=== PATIENT | female | born 1935 | race Caucasian/White ===

== ENCOUNTER 2017-02-27 10:28 | Outpatient (CLI) | payer MEDICARE ==
[2017-02-27 11:13] LABS: #Eosinphils 0.2 thou/uL (0.0-0.7); #Lymphocytes 1.9 thou/uL (1.20-3.40); #Monocytes 0.4 thou/uL (0.11-0.59); #Neutrophils 3.1 thou/uL (1.40-6.50); %Basophils 0.9 % (0.0-1.0); %Eosinophils 3.2 % (0.0-10.0); %Lymphocytes 33.4 % (21.0-51.0); %Monocytes 7.5 % (0.0-10.0); Hematocrit 41.8 % (36.0-47.0); Mean Platelet Volume 9.2 fL (7.4-10.4); White Blood Cell (WBC) Count 5.7 thou/uL (4.8-10.8)
--- NOTE | 2017-02-27 11:25 | RAD ---
TWO VIEW CHEST: History: Pre-operative evaluation. FINDINGS: The lung esparza appear clear. No infiltrates seen. Heart and mediastinum are unremarkable. Osseous st ructures unremarkable. IMPRESSION: No acute process. POS: [facility]
[2017-02-27 11:32] LABS: Anion Gap 9 mmol/L (10-20); BUN (Urea Nitrogen) 15 mg/dL (9.8-20.1); Calc. Creatinine Clearance 0 mL/min (70-130); Calcium 9.4 mg/dL (7.8-10.44); Carbon Dioxide 26 mmol/L (23-31); Chloride 108 mmol/L (98-107); Estimated GFR-MDRD 78
--- NOTE | 2017-02-28 14:25 | EKG ---
Test Reason : Blood Pressure : / mmHG Vent. Rate : 065 BPM Atrial Rate : 065 BPM P-R Int : 172 ms QRS Dur : 082 ms QT Int : 388 ms P-R-T Axes : 037 024 033 degrees QTc Int : 403 ms Normal sinus rhythm Normal ECG Confirmed by TABATHA MARQUEZ ([id number]) on 02/28/2017 2:25:08 PM Referred By: AZRA Confirmed By:TABATHA MARQUEZ
== END 2017-02-27 10:29 | disposition home or self-care (01) ==
LOC: LABBT 10:28
PROVIDERS: ATTEND Orthopaedic Surgery Hand Surgery
DX: Z01.818 Encounter for other preprocedural examination (principal); G56.01 Carpal tunnel syndrome, right upper limb
CPT/HCPCS: 71020; 80048; 85025; 93005; 93010

== ENCOUNTER 2017-03-06 11:39 | Day surgery (SDC) | payer MEDICARE ==
[2017-03-06] MEDS ORDERED: Sodium Chloride 0.9% 0 ML ONE (13:38)
[2017-03-06] MEDS ORDERED: Bupivacaine/Epinephrine 0.25% 30 ML VIAL ONE (13:38)
[2017-03-06] MEDS ORDERED: Bacitracin Zinc Ointment 30 gm TUBE ONE ×2 (13:38→13:43)
[2017-03-06] MEDS ORDERED: Bupivacaine PF 0.5% 30 ML VIAL ONE (13:43)
[2017-03-06] MEDS ORDERED: Betamet Acet/Betamet Na Ph 30 MG/5 ML VIAL ONE (13:44)
[2017-03-06] MEDS ORDERED: Clindamycin/D5W 600 mg/50 ml Premix Bag ONE (13:48)
[2017-03-06] MEDS ORDERED: Fentanyl 100 MCG/2 ML VIAL ONE (14:14)
[2017-03-06] MEDS ORDERED: Lidocaine 1% PF 5 ML VIAL ONE (15:48)
[2017-03-06] MEDS ORDERED: Ondansetron HCl/PF 4 MG/2 ML Vial ONE (15:48)
[2017-03-06] MEDS ORDERED: Propofol 200 MG/20 ML VIAL ONE (15:48)
--- NOTE | 2017-03-06 21:50 | OP ---
DATE OF SURGERY: 03/06/2017 PREOPERATIVE DIAGNOSIS: Right carpal tunnel syndrome. POSTOPERATIVE DIAGNOSIS: Right carpal tunnel syndrome. FINDINGS: Very tight transcarpal ligament over 2 cm area where there was early flattening in the sag ittal plane without stippling or an hourglass formation of median nerve within the distal third of tr ansverse carpal ligament. No excessive laxity and synovitis was found. PROCEDURE PERFORMED: 1. Carpal tunnel release. 2. Carpal tunnel injection, steroid, Celestone 3 mL. COMPLICATIONS: None. TOURNIQUET TIME: 14 minutes. ESTIMATED BLOOD LOSS: Less than 5 mL. INJECTABLE: 3 mL drip technique of Celestone into the canal around the nerve. INDICATION: Failed conservative treatment except for some moderate but fleeting relief with injectio n. Now returns because the numbness has persisted for over 2 years and increased with portion of the last 6 months. I warned the patient and daughter prior to surgery that the duration of greater than 2 years will pro bably mean delayed return of sensation and normal feeling to the tips of the digits even though the l asting pain should decrease appreciably right away. DESCRIPTION OF PROCEDURE: After successful general LMA technique, the limb was prepped and draped. Time out was done appropriately. Limb was exsanguinated, tourniquet inflated to 250 mmHg pressure. A total of 6 mL 0.5% Marcaine given along the outline incision, which was in line with the aníbal clements r for me to allow for a distance for approximately 5 mm distal to the volar wrist flexion creas e. With examination completed, tourniquet was inflated to 250 mmHg pressure, the incision was develo ped and carried the skin and subcutaneous tissue until we reached the transverse carpal ligament. We entered the ligament just ulnar to the line that includes the ring finger and the palmaris longus. Carried this through skin and subcutaneous tissue until we then open transverse carpal ligament with a Villalba blade, visualized the underlying soft tissue structures as the flexor tendon sheath and then from midportion distally released transverse carpal ligament protecting the median nerve which had a type 1 takeoff the motor branch. We then dissected back proximally, increased with self-retaining r etractor and then elevated the skin, so we can visualize the transverse carpal ligament proximal to t he mid portion and this was released as well under direct visualization with a combination of Villalba blade and tenotomy scissors. We then placed 3 mL Celestone on the median nerve where we could see it was flat in the sagittal plane without stippling or an hourglass formation. We released the tourniq uet, obtained hemostasis and then closed the wound with interrupted 4-0 nylon mattress pattern. Bulk y dressing was applied along with a small Raimundo wrap, and the patient left the operating room without e vidence of anesthetic or operative complication.
== END 2017-03-06 16:30 | disposition home or self-care (01) ==
LOC: SDC 11:39
PROVIDERS: ATTEND Orthopaedic Surgery Hand Surgery
PROC: 01N50ZZ Release Median Nerve, Open Approach (ICD-10-PCS; principal; 2017-03-06)
PROC: 3E0T33Z Introduction of Anti-inflammatory into Peripheral Nerves and Plexi, Percutaneous Approach (ICD-10-PCS; 2017-03-06)
DX: G56.01 Carpal tunnel syndrome, right upper limb (principal); I10 Essential (primary) hypertension; G62.9 Polyneuropathy, unspecified; Z88.2 Allergy status to sulfonamides; Z88.8 Allergy status to other drugs, medicaments and biological substances; Z88.0 Allergy status to penicillin; Z98.890 Other specified postprocedural states
CPT/HCPCS: A4216; J0702; J2001; J2405; J2704; J3010; J3490; S0020

== ENCOUNTER 2017-11-25 13:07 | Outpatient (CLI) | payer MEDICARE ==
[~2017-11-25 13:07] MED LIST: Gadobenate Dimeglumine 529 MG/1 ML (20ML VIAL) ONE
--- NOTE | 2017-11-25 17:18 | RAD ---
LUMBAR SPINE 4 VIEWS: Date: 11/25/17 HISTORY: Radiculopathy. Numbness and tingling. Left leg pain. FINDINGS: There are five lumbar-type vertebral bodies. Vertebral body height is maintained. Disc space heights are preserved. No fracture. Vacuum disc phenomenon at L2-L3 and L5-S1. Moderate loss of disc space he ight at L2-L3. Severe loss of disc space height at L5-S1. There are degenerative changes in the poste rior elements. In the neutral position, 3.8 mm retrolisthesis of L2 upon L3. Upon flexion, 3.1 mm of retrolisthesis of L2 upon L3. Upon extension, 3.8 mm retrolisthesis of L2 upon L3. No additional spon dylosis is noted. IMPRESSION: Degenerative changes lumbar spine as above. POS: [facility]
--- NOTE | 2017-11-25 17:21 | RAD ---
CERVICAL SPINE SERIES 4 VIEWS: Date: 11/25/17 HISTORY: Neck pain and left arm numbness and tingling. FINDINGS: The bones appear demineralized. Vertebral bodies maintain normal height. There is some mild disc narr owing at C4-5. Osteophytic changes and degenerative facet changes are seen along the course of the sp ine. No soft tissue swelling. No abnormal motion and extension or flexion, somewhat restricted motion and flexion in lower cervical spine. IMPRESSION: Arthritic changes of the spine. POS: [facility]
--- NOTE | 2017-11-25 17:30 | MRI ---
MRI LUMBAR SPINE WITH AND WITHOUT CONTRAST: HISTORY: Small bowel radiculopathy. Low back pain x2 years. Left leg pain. Associated numbness and tingling . COMPARISON: None. TECHNIQUE: An MRI of the lumbar spine is performed with and without intravenous Gadolinium administration. Mult isequential, multiplanar imaging is performed. FINDINGS: Type 1 and 2 modic changes at the inferior endplate of T12 and the inferior endplate of L1, as well a s the L4-L5 disk space. Post contrast images do not demonstrate any obvious abnormal enhancement in the vertebral bodies. Symmetric signal intensity of the psoas muscles. The visualized solid organs have appropriate signal intensity. The conus medullaris terminates at the mid L1 level. Unremarkable gallbladder. T12-L1: No high grade central canal stenosis or high grade foraminal narrowing. L1-L2: Desiccation with moderate loss of disk space height. Generalized disk bulge. No significant central canal stenosis. Mild bilateral foraminal narrowing. L2-L3: Desiccation with moderate loss of disk space height. Generalized disk bulge. Right greater than left posterior element hypertrophy results in mild stenosis of the thecal sac. However, there i s significant narrowing of the right subarticular zone with at least partial obscuration of the trave rsing right L3 nerve root. There is moderate to severe right foraminal narrowing due to disk materia l and posterior element hypertrophy. Moderate left foraminal narrowing. L3-L4: Desiccation with mild loss of disk space height. Generalized disk bulge, ligamentum flavum t hickening, and facet hypertrophy result in moderate to severe central canal stenosis. Moderate to se veronika right and left foraminal narrowing. L4-L5: Desiccation with moderate loss of disk space height. Generalized disk bulge, ligamentum flav um thickening, and facet hypertrophy do not cause any significant stenosis of the thecal sac. Minima l encroachment upon the left and right subarticular zone. Disk material abuts but does not obscure e ither traversing L5 nerve root. Moderate right and severe left foraminal narrowing. Inferior to the L4-L5 level, there appears to be a posterior decompression laminectomy defect. L5-S1: Severe loss of disk space height. There is a central/left subarticular disk protrusion. Dis k material abuts and effaces the traversing left S1 nerve root. Overall, there is moderate central c anal stenosis. Moderate to severe bilateral foraminal narrowing. Possible decompression changes in the posterior elements at L5-S1. Possible component of bone graft material. There may be a componen t of a small amount of enhancing scar tissue in the left subarticular zone, which compounds the overa ll narrowing of the traversing left S1 nerve roots. IMPRESSION: 1. Possible postsurgical changes at L5-S1. There is significant narrowing of the left subarticular zone secondary to disk material and probably scar tissue, which results in significant obscuration of the traversing left S1 nerve root. 2. Significant neural foraminal narrowing at multiple levels. Specifically, there is severe left fo raminal narrowing at L4-L5. Moderate to severe foraminal narrowing at multiple levels, as described above. 3. Significant central canal stenosis at multiple levels, as described above. Previous degree of ce ntral canal stenosis at L3-L4. POS: [facility]
== END 2017-11-25 13:08 | disposition home or self-care (01) ==
LOC: TBSIIMAG 13:07
PROVIDERS: ATTEND Surgery
DX: M47.26 Other spondylosis with radiculopathy, lumbar region (principal); M50.10 Cervical disc disorder with radiculopathy, unspecified cervical region; M46.92 Unspecified inflammatory spondylopathy, cervical region; M99.83 Other biomechanical lesions of lumbar region; M48.061 Spinal stenosis, lumbar region without neurogenic claudication
CPT/HCPCS: 72050; 72110; 72158; 82565; A9579

== ENCOUNTER 2017-12-31 09:08 | Outpatient (CLI) | payer MEDICARE ==
[2017-12-31 10:38] LABS: Hemoglobin 14.2 g/dL (12.0-16.0); Mean Corpuscular HGB CONC 32.2 g/dL (32.0-36.0); Mean Corpuscular Hemoglobin 30.7 pg (27.0-31.0); Mean Corpuscular Volume 95.5 fL (78.0-98.0); Platelet Count 190 thou/uL (130-400); RBC Distribution Width 11.7 % (11.5-14.5); Red Blood Cell (RBC) Count 4.61 mill/uL (4.20-5.40); White Blood Cell (WBC) Count 4.5 thou/uL (4.8-10.8)
[2017-12-31 10:46] LABS: Prothrombin Time 13.4 SEC (12.0-14.7)
[2017-12-31 10:47] LABS: PTT 29.2 SEC (22.9-36.1)
[2017-12-31 10:57] LABS: Anion Gap 13 mmol/L (10-20); BUN (Urea Nitrogen) 18 mg/dL (9.8-20.1); Calc. Creatinine Clearance 0 mL/min (70-130); Calcium 9.5 mg/dL (7.8-10.44); Carbon Dioxide 23 mmol/L (23-31); Chloride 108 mmol/L (98-107); Estimated GFR-MDRD 65; Glucose 113 mg/dL (83-110); Potassium 4.2 mmol/L (3.5-5.1); Sodium 140 mmol/L (136-145)
== END 2017-12-31 09:09 | disposition home or self-care (01) ==
LOC: LABBT 09:08
PROVIDERS: ATTEND Surgery
DX: Z01.818 Encounter for other preprocedural examination (principal); M54.16 Radiculopathy, lumbar region; M48.061 Spinal stenosis, lumbar region without neurogenic claudication
CPT/HCPCS: 80048; 85027; 85610; 85730; 93005; 93010

== ENCOUNTER 2018-01-07 08:42 | Day surgery (SDC) | payer MEDICARE ==
[2017-12-31 09:27] VITALS: BMI 29.3
[2018-01-07] MEDS ORDERED: Levofloxacin 500 mg/D5W 100 ml Premix Bag ONE (09:45)
[2018-01-07] MEDS ORDERED: Clindamycin/D5W 900 mg/50 ml Premix Bag ONE (09:46)
[2018-01-07] MEDS ORDERED: Sodium Chloride 0.9% 10 ML ONE (10:56)
[2018-01-07] MEDS ORDERED: Bacitracin Zinc Ointment 30 gm TUBE ONE (10:57)
[2018-01-07] MEDS ORDERED: Thrombin 5000 UNITS/5 ML VIAL ONE ×2 (10:57→13:29)
[2018-01-07] MEDS ORDERED: Fentanyl 100 MCG/2 ML VIAL ONE ×2 (11:34→15:23)
--- NOTE | 2018-01-07 14:37 | OP ---
SURGEON: Ezekiel Mendoza M.D. ORGANIZATIONAL DEVELOPMENT MANAGER: Marshall Toribio PA-C. 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 PROCEDURE PERFORMED: 1. L2-L3, L3-L4 laminectomies, partial facetectomies and foraminotomies. 2. L4-L5, L5-S1 revision hemilaminotomies, foraminotomies for decompression of the L4, L5, S1 nerve roots bilateral (a modifier 50 should be added to the L4-L5, L5-S1 hemilaminotomies as they were revi keiko hemilaminotomies done bilaterally. PROCEDURE: After informed consent was obtained from the patient, the patient brought to OR #12. Pro per patient pause and identification was carried out. She was placed under excellent general endotra cheal anesthesia and positioned prone on the OR table. All appropriate points were padded. We ident ified the prior lumbar wound and a linear kranthi was extended to allow for approach to allow for approa ch to the L2, L3, L4, L5, S1 dorsal spines. This region was sterilely cleansed, prepared, and draped . Proper patient pause and identification was carried out. The wound was then opened with a combina tion of sharp, monopolar and blunt dissection proceeded to expose the L2, L3, L4, L5 and S1 dorsal sp luís and lamina. There was scar tissue in the L4-L5 and L5-S1 segments. As a result of the prior krishnan rgeries the patient has had, we then localization film then confirmed our area of interest. We then performed an L2-L3, L3-L4 laminectomies, partial facetectomies and foraminotomies over the L2, L3, ne rve roots. We then turned our attention to the bilateral L4-L5 and L5-S1. Nerve roots for decompres keiko via a revision bilateral hemilaminotomies at the L4-L5 and revision bilateral hemilaminotomies a t the L5-S1 for decompression of the common dural tube and the nerve roots at L4, L5, and S1. Copiou s irrigation occurred throughout and we maximized hemostasis. The wound was then copiously irrigated and closed in anatomic layers following the sprinkling of vancomycin powder. The patient then emerg ed from anesthesia.
[2018-01-07] MEDS ORDERED: Promethazine HCl 25 MG/ML VIAL SLOW IVP PRN (14:44)
[2018-01-07] MEDS ORDERED: Morphine Sulfate 2 MG/ML SYRINGE SLOW IVP PRN (14:44)
[2018-01-07] MEDS ORDERED: Meperidine HCl/PF 25 MG/ML VIAL SLOW IVP PRN (14:44)
[2018-01-07] MEDS ORDERED: Promethazine HCl 25 MG/ML VIAL IM PRN ×2 (14:44→14:50)
[2018-01-07] MEDS ORDERED: Acetaminophen/Codeine 30-300mg Tablet PO PRN (14:50)
[2018-01-07] MEDS ORDERED: traMADol HCl 50 MG TAB PO PRN (14:50)
[2018-01-07] MEDS ORDERED: Milk Of Magnesia 30 ML UDCUP PO PRN (14:50)
[2018-01-07] MEDS ORDERED: Acetaminophen 325 MG TAB PO PRN (14:50)
[2018-01-07] MEDS ORDERED: Mag-Al 1200 mg/1200 mg/30 ML UDCUP PO PRN (14:50)
[2018-01-07] MEDS ORDERED: Fleet Enema 133 ML BOT PR PRN (14:50)
[2018-01-07] MEDS ORDERED: Bisacodyl 10 MG SUPP PR PRN (14:50)
[2018-01-07] MEDS ORDERED: Atenolol 25 MG TAB PO SCH (15:00)
[2018-01-07] MEDS ORDERED: Dexamethasone 20 MG/5 ML VIAL ONE (17:32)
[2018-01-07] MEDS ORDERED: PROPOFOL 200 MG/20 ML VIAL ONE (17:32)
[2018-01-07] MEDS ORDERED: ePHEDrine/0.9% NaCl/PF SYRINGE 50 mg/10 ml ONE (17:32)
[2018-01-07] MEDS ORDERED: Ondansetron PF 4 MG/2 ML Vial ONE (17:32)
[2018-01-07] MEDS ORDERED: Lidocaine 1% PF 5 ML VIAL ONE (17:32)
[2018-01-07] MEDS: Clindamycin/D5W 900 MG in Premix Bag 1 BAG IVPB SCH (17:45)
[2018-01-07] MEDS ORDERED: Morphine 2 MG/ML SYRINGE SLOW IVP PRN (18:24)
[2018-01-07] MEDS: Sodium Chloride 0.9% 1,000 ML IV SCH (19:38)
[2018-01-08] MEDS: Clindamycin/D5W 900 MG in Premix Bag 1 BAG IVPB SCH (02:19)
[2018-01-08] MEDS: Sodium Chloride 0.9% 1,000 ML IV SCH (03:47)
[2018-01-08 04:38] VITALS: TEMP 98.1
[2018-01-08] MEDS: HYDROcodone/Acetaminophen 7.5/325 mg Tablet PO PRN ×2 (09:01→13:37)
--- NOTE | 2018-01-08 09:50 | PRG ---
DATE OF SERVICE: 01/08/2018 SUBJECTIVE: Ms. Briceño is postoperative day #01 multilevel decompression. She is sitting at a b [facility] chair, neurologically doing well. She feels improved symptoms in her legs. She went over an intra and postoperative issues. If she meets criteria, she will be dismissed.
[2018-01-08 12:03] VITALS: BP 123/71
== END 2018-01-08 14:26 | disposition home or self-care (01) ==
LOC: SDC 08:42 → SJJU 14:50 → SDC 01-08 14:26
PROVIDERS: ATTEND Surgery
PROC: 01NB0ZZ Release Lumbar Nerve, Open Approach (ICD-10-PCS; principal; 2018-01-07)
PROC: 0SB20ZZ Excision of Lumbar Vertebral Disc, Open Approach (ICD-10-PCS; 2018-01-07)
PROC: 0ST20ZZ Resection of Lumbar Vertebral Disc, Open Approach (ICD-10-PCS; 2018-01-07)
DX: M48.061 Spinal stenosis, lumbar region without neurogenic claudication (principal); Z88.0 Allergy status to penicillin; Z79.82 Long term (current) use of aspirin; Z79.899 Other long term (current) drug therapy
CPT/HCPCS: 63042; 63044; 63047; 63048; 76001; 90662; 97110; 97116; 97139 ×3; G0008; G8978; G8979; G8980; G8987; G8988; G8989; 90471; 96374; 96375; J0131; J1100; J1956; J2001; J2270; J2405; J2704; J3010; J3370; J3490